=== PATIENT | female | born 1965 | race Caucasian/White ===

== ENCOUNTER → 2019-02-20 | Outpatient (CLI) | payer OTHER | LOC: RAD 09:54 | DX: M25.562 Pain in left knee (principal) ==

== ENCOUNTER → 2022-03-16 | Outpatient (RCR) | payer OTHER | END | disposition still patient (30) | LOC: PT | DX: M25.512 Pain in left shoulder (principal); M79.622 Pain in left upper arm ==

== ENCOUNTER → 2024-05-17 | Outpatient (CLI) | payer MEDICAID | LOC: RAD 10:23 | DX: M25.561 Pain in right knee (principal) ==